=== PATIENT | female | born 1955 | race Caucasian/White ===

== ENCOUNTER → 2017-04-08 | Emergency (ER) | payer OTHER ==
[~2017-04-08] VITALS: Ht 167.6 cm; Wt 53.5 kg
[~2017-04-08] MED LIST: ALBUTEROL2.5 MG/3 M IH; FLOVENT HFA10.6 GM IH; PEPCID40 MG PO; ZOCOR5 MG; ZOFRAN4 MG PO; ZYNCOF 20-400120 ML PO
== END | disposition home or self-care (01) ==
LOC: ER 03:56
DX: J40 Bronchitis, not specified as acute or chronic (principal)

== ENCOUNTER 2019-01-22 15:29 | Emergency (ER) | payer OTHER ==
[~2019-01-22] VITALS: Ht 167.6 cm; Wt 53.5 kg
== END 2019-01-22 21:20 | disposition home or self-care (01) ==
LOC: ER 15:29
DX: R51 Headache (principal)

== ENCOUNTER 2019-01-24 03:48 | Emergency (ER) | payer OTHER ==
[~2019-01-24] VITALS: Ht 167.6 cm; Wt 53.5 kg
== END 2019-01-24 18:08 | disposition home or self-care (01) ==
LOC: ER 03:48
DX: R51 Headache (principal)